=== PATIENT | male | born 1965 | race Two or more races ===

== ENCOUNTER 2019-05-30 15:28 | Emergency (ER) | payer MEDICAID, OTHER ==
[~2019-05-30] VITALS: Ht 167.6 cm; Wt 89.8 kg
[2019-05-30 18:23] VITALS: BP 143/78
[2019-05-30] MEDS ORDERED: TETANUS-DIPTH-ACEL PERTUSSIS 0.5ML SYRG IM ONE (18:45)
[2019-05-30] MEDS ORDERED: LIDOCAINE 1% HCL (LOCAL ANESTH.) INJ 20ML MDV IJ ONE (19:00)
[2019-05-30] MEDS ORDERED: BACITRACIN TOP OINT 1 UD PKG TOP ONE (19:45)
== END 2019-05-30 20:19 | disposition home or self-care (01) ==
LOC: ER 15:28
DX: S61.412A Laceration without foreign body of left hand, initial encounter (principal); W26.0XXA Contact with knife, initial encounter; Y93.89 Activity, other specified; Y92.89 Other specified places as the place of occurrence of the external cause; Y99.8 Other external cause status
CPT/HCPCS: 12002; 90471; 90715; 99283; J2001

== ENCOUNTER 2019-06-03 15:59 | Emergency (ER) | payer MEDICAID ==
[~2019-06-03] VITALS: Ht 167.6 cm; Wt 89.8 kg
[2019-06-03 16:50] VITALS: BP 142/88
== END 2019-06-03 17:39 | disposition home or self-care (01) ==
LOC: ER 15:59
DX: S61.412D Laceration without foreign body of left hand, subsequent encounter (principal); X58.XXXD Exposure to other specified factors, subsequent encounter

== ENCOUNTER 2019-06-09 11:15 | Emergency (ER) | payer MEDICAID ==
[~2019-06-09] VITALS: Ht 167.6 cm; Wt 89.8 kg
[2019-06-09 12:28] VITALS: BP 135/83
== END 2019-06-09 13:27 | disposition home or self-care (01) ==
LOC: ER 11:15
DX: S61.412D Laceration without foreign body of left hand, subsequent encounter (principal); X58.XXXD Exposure to other specified factors, subsequent encounter

== ENCOUNTER 2021-09-27 12:08 | Inpatient (IN) | payer MEDICAID ==
[~2021-09-27] VITALS: Ht 167.6 cm; Wt 83.1 kg
[2021-09-27 19:34] LABS: Basophils # (auto) 0.2 10 ^3/uL (0-0.2); Basophils % (auto) 1.1 % (0.0-2.0); Eosinophils # (auto) 0.8 10 ^3/uL (0-0.8); Eosinophils % (auto) 5.8 % (0.0-7.0); Hematocrit 41.3 % (41.0-53.0); Hemoglobin 13.9 g/dL (13.5-17.5); Lymphocytes # (auto) 3.4 10 ^3/uL (0.4-5.4); Lymphocytes % (auto) 24.8 % (10.0-50.0); Mean Corpuscular Hemoglobin 27.9 pg (28.0-32.0); Mean Corpuscular Hgb Conc. 33.6 g/dL (32.0-36.0); Mean Corpuscular Volume 83.1 fL (80.0-100.0); Monocytes # (auto) 0.8 10 ^3/uL (0-1.3); Neutrophils # (auto) 8.5 10 ^3/uL (1.6-8.6); Neutrophils % (auto) 62.3 % (37.0-80.0); Nucleated Red Blood Cells % 0.1 %; Red Blood Cells 4.98 10^6/uL (4.5-5.90); Red Cell Distribution Width 14.1 % (11.8-14.3); White Blood Cell 13.7 10^3/uL (4.4-10.8)
[2021-09-27 19:52] LABS: Albumin 3.4 g/dL (3.4-5.0)
[2021-09-27 19:56] LABS: Bilirubin, Total 0.1 mg/dL (0.2-1.0); Total Protein 9.1 g/dL (6.4-8.2)
[2021-09-28] MEDS ORDERED: CLINDAMYCIN 600MG IV 50 ML IV ONE (01:00)
[2021-09-28] MEDS ORDERED: VANCOMYCIN PER PHARMACY 0 MG IV SCH (04:15)
[2021-09-28] MEDS ORDERED: DEXTROSE (50%) 50ML SYRG IV PRN (04:15)
[2021-09-28] MEDS ORDERED: ACETAMINOPHEN 325 MG TAB PO PRN (04:15)
[2021-09-28] MEDS ORDERED: TEMAZEPAM 15 MG CAP PO PRN (04:15)
[2021-09-28] MEDS ORDERED: ONDANSETRON HCL 4 MG/2 ML VIAL IV PRN (04:15)
[2021-09-28] MEDS ORDERED: cloNIDine HCL 0.1 MG TAB PO PRN (04:15)
[2021-09-28] MEDS: cefTRIAXone 1GM/50ML D5W 50 ML IV SCH (04:24)
[2021-09-28] MEDS ORDERED: VANCOMYCIN 1GM/250ML 250 ML IV ONE (05:00)
[2021-09-28] MEDS: ACCU-CHEK COMFORT CURVE STRIP VI SCH ×4 (07:18→21:20)
[2021-09-28] MEDS: InsuLIN REG 1unit/0.01ml Soln (100units/ml) SC SCH ×4 (07:24→21:28)
[2021-09-28 08:00] VITALS: BP 135/88
[2021-09-28 09:05] VITALS: BP 135/88
[2021-09-28] MEDS: amLODIPine BESYLATE 5 MG TAB PO SCH (10:10)
[2021-09-28 12:27] VITALS: BP 130/80
[2021-09-28 16:44] VITALS: BP 131/84
[2021-09-28] MEDS ORDERED: METF-370 PO (18:49)
[2021-09-28] MEDS: ATORVASTATIN 20 MG TAB PO SCH (21:19)
[2021-09-28 21:49] VITALS: BP 140/86
[2021-09-28] MEDS: VANCOMYCIN 1GM/250ML 250 ML IV SCH (23:02)
[2021-09-29 04:29] VITALS: BP 113/71
[2021-09-29] MEDS: ACCU-CHEK COMFORT CURVE STRIP VI SCH ×4 (06:00→21:59)
[2021-09-29] MEDS: InsuLIN REG 1unit/0.01ml Soln (100units/ml) SC SCH ×4 (06:07→22:01)
[2021-09-29 06:28] LABS: Basophils # (auto) 0.1 10 ^3/uL (0-0.2); Eosinophils # (auto) 0.7 10 ^3/uL (0-0.8); Hematocrit 38.7 % (41.0-53.0); Hemoglobin 13.3 g/dL (13.5-17.5); Lymphocytes # (auto) 1.6 10 ^3/uL (0.4-5.4); Lymphocytes % (auto) 15.5 % (10.0-50.0); Mean Corpuscular Hemoglobin 28.2 pg (28.0-32.0); Mean Corpuscular Hgb Conc. 34.4 g/dL (32.0-36.0); Mean Corpuscular Volume 82.1 fL (80.0-100.0); Monocytes # (auto) 0.7 10 ^3/uL (0-1.3); Monocytes % (auto) 6.9 % (0.0-12.0); Neutrophils # (auto) 7.2 10 ^3/uL (1.6-8.6); Neutrophils % (auto) 69.6 % (37.0-80.0); Nucleated Red Blood Cells % 0.2 %; Red Blood Cells 4.72 10^6/uL (4.5-5.90); Red Cell Distribution Width 13.7 % (11.8-14.3); White Blood Cell 10.3 10^3/uL (4.4-10.8)
[2021-09-29 06:42] LABS: Potassium 4.2 mmol/L (3.5-5.1)
[2021-09-29 06:45] LABS: BUN/Creatinine Ratio 17.5
[2021-09-29 09:00] VITALS: BP 130/83
[2021-09-29] MEDS: cefTRIAXone 1GM/50ML D5W 50 ML IV SCH (09:31)
[2021-09-29] MEDS: amLODIPine BESYLATE 5 MG TAB PO SCH (09:31)
[2021-09-29 13:00] VITALS: BP 126/84
[2021-09-29 16:21] LABS: INR 1.05 (0.9-1.15)
[2021-09-29 17:00] VITALS: BP_SYST 116; BP_SYST 130; BP_DIAS 72; BP_DIAS 78
[2021-09-29] MEDS: VANCOMYCIN 1GM/250ML 250 ML IV SCH (17:09)
[2021-09-29 22:00] VITALS: BP 128/81
[2021-09-29] MEDS: ATORVASTATIN 20 MG TAB PO SCH (22:00)
[2021-09-30] MEDS: VANCOMYCIN 1GM/250ML 250 ML IV SCH ×2 (04:57→17:02)
[2021-09-30 05:00] VITALS: BP 126/77
[2021-09-30] MEDS: ACCU-CHEK COMFORT CURVE STRIP VI SCH ×4 (06:15→22:23)
[2021-09-30] MEDS: InsuLIN REG 1unit/0.01ml Soln (100units/ml) SC SCH ×4 (06:16→22:20)
[2021-09-30 09:00] VITALS: BP 119/79
[2021-09-30] MEDS: amLODIPine BESYLATE 5 MG TAB PO SCH (10:17)
[2021-09-30] MEDS: cefTRIAXone 1GM/50ML D5W 50 ML IV SCH (10:17)
[2021-09-30] MEDS: ASPirin 81 mg TAB PO SCH (10:17)
[2021-09-30 22:00] VITALS: BP 129/72
[2021-09-30] MEDS: ATORVASTATIN 20 MG TAB PO SCH (22:23)
[2021-10-01 05:28] VITALS: BP 139/83
[2021-10-01] MEDS: VANCOMYCIN 1GM/250ML 250 ML IV SCH (05:31)
[2021-10-01] MEDS: ACCU-CHEK COMFORT CURVE STRIP VI SCH ×4 (06:15→22:58)
[2021-10-01] MEDS: InsuLIN REG 1unit/0.01ml Soln (100units/ml) SC SCH ×4 (06:20→22:46)
[2021-10-01 06:30] LABS: Basophils # (auto) 0.1 10 ^3/uL (0-0.2); Basophils % (auto) 1.2 % (0.0-2.0); Eosinophils # (auto) 0.8 10 ^3/uL (0-0.8); Eosinophils % (auto) 6.5 % (0.0-7.0); Hematocrit 38.8 % (41.0-53.0); Hemoglobin 13.2 g/dL (13.5-17.5); Lymphocytes # (auto) 2.1 10 ^3/uL (0.4-5.4); Lymphocytes % (auto) 17.9 % (10.0-50.0); Mean Corpuscular Hemoglobin 28.1 pg (28.0-32.0); Mean Corpuscular Hgb Conc. 34.1 g/dL (32.0-36.0); Mean Corpuscular Volume 82.4 fL (80.0-100.0); Monocytes # (auto) 0.8 10 ^3/uL (0-1.3); Monocytes % (auto) 6.4 % (0.0-12.0); Neutrophils # (auto) 8.1 10 ^3/uL (1.6-8.6); Nucleated Red Blood Cells % 0.1 %; Red Blood Cells 4.71 10^6/uL (4.5-5.90); Red Cell Distribution Width 13.6 % (11.8-14.3); White Blood Cell 11.9 10^3/uL (4.4-10.8)
[2021-10-01 06:40] LABS: Calcium 8.6 mg/dL (8.5-10.1)
[2021-10-01 06:41] LABS: INR 1.04 (0.9-1.15)
[2021-10-01] MEDS ORDERED: HEPARIN IN NS 1000Units/500mL 0 ML ONE (09:11)
[2021-10-01] MEDS ORDERED: LIDOCAINE 2%HCL (LOCAL ANESTH.) INJ 10ml MDV ONE (09:11)
[2021-10-01] MEDS ORDERED: IODIXANOL 320MG/ML 100ML BTL IV ONE (09:11)
[2021-10-01 09:21] VITALS: BP 142/85
[2021-10-01] MEDS: amLODIPine BESYLATE 5 MG TAB PO SCH (10:00)
[2021-10-01] MEDS: ASPirin 81 mg TAB PO SCH (10:00)
[2021-10-01] MEDS ORDERED: ANGIOMAX 250 MG VIAL IV ONE (12:09)
[2021-10-01] MEDS ORDERED: MIDAZOLAM HCL 2MG/2ML 2ml VIAL (1mg/ml) ONE (12:10)
[2021-10-01] MEDS ORDERED: LIDOCAINE 2%HCL (LOCAL ANESTH.) INJ 20ML MDV ONE (12:10)
[2021-10-01] MEDS ORDERED: SODIUM CHL 0.9% 0 ML ONE (12:10)
[2021-10-01] MEDS ORDERED: fentaNYL CITRATE 100 MCG/2 ML VL ONE (12:10)
[2021-10-01] MEDS ORDERED: LIDOCAINE 1% (LOCAL ANESTH.) PF 5ml SDV ID ONE (13:45)
[2021-10-01] MEDS: cefTRIAXone 1GM/50ML D5W 50 ML IV SCH (14:14)
[2021-10-01 17:00] VITALS: BP 145/85
[2021-10-01 22:00] VITALS: BP 128/69
[2021-10-01] MEDS: ATORVASTATIN 20 MG TAB PO SCH (22:54)
[2021-10-01] MEDS: SODIUM CHLOR 0.9% PF (SALINE LOCK) 10ML VIAL/SYR IV SCH (22:58)
[2021-10-02] VITALS (9 sets, daily range): BP systolic 112–144; BP diastolic 68–78
[2021-10-02] MEDS: InsuLIN REG 1unit/0.01ml Soln (100units/ml) SC SCH ×4 (06:14→22:00)
[2021-10-02] MEDS: ACCU-CHEK COMFORT CURVE STRIP VI SCH ×4 (06:15→23:01)
[2021-10-02] MEDS: cefTRIAXone 1GM/50ML D5W 50 ML IV SCH (09:00)
[2021-10-02] MEDS ORDERED: VANCOMYCIN 1GM/250ML 250 ML IV SCH (10:00)
[2021-10-02] MEDS: amLODIPine BESYLATE 5 MG TAB PO SCH (10:00)
[2021-10-02] MEDS: SODIUM CHLOR 0.9% PF (SALINE LOCK) 10ML VIAL/SYR IV SCH ×2 (10:00→23:01)
[2021-10-02] MEDS: ASPirin 81 mg TAB PO SCH (10:00)
[2021-10-02] MEDS ORDERED: IODIXANOL 320MG/ML 100ML BTL IV ONE ×2 (10:46→11:01)
[2021-10-02] MEDS ORDERED: LIDOCAINE 2%HCL (LOCAL ANESTH.) INJ 20ML MDV ONE (10:46)
[2021-10-02] MEDS ORDERED: fentaNYL CITRATE 100 MCG/2 ML VL ONE (10:55)
[2021-10-02] MEDS ORDERED: ANGIOMAX 250 MG VIAL IV ONE (10:55)
[2021-10-02] MEDS ORDERED: SODIUM CHL 0.9% 0 ML ONE (10:56)
[2021-10-02] MEDS ORDERED: MIDAZOLAM HCL 2MG/2ML 2ml VIAL (1mg/ml) ONE (10:56)
[2021-10-02] MEDS: VANCOMYCIN 1GM/250ML 250 ML IV SCH (13:21)
[2021-10-02] MEDS: ATORVASTATIN 20 MG TAB PO SCH (23:01)
[2021-10-03] MEDS: VANCOMYCIN 1GM/250ML 250 ML IV SCH ×2 (04:23→20:40)
[2021-10-03 05:00] VITALS: BP 109/61
[2021-10-03] MEDS: InsuLIN REG 1unit/0.01ml Soln (100units/ml) SC SCH ×4 (06:04→21:26)
[2021-10-03] MEDS: ACCU-CHEK COMFORT CURVE STRIP VI SCH ×4 (06:04→21:25)
[2021-10-03] MEDS ORDERED: ceFAZolin 1GM/50ML 100 ML IV ONE (08:07)
[2021-10-03] MEDS ORDERED: BUPIVACAINE HCL 50 ML ONE (08:19)
[2021-10-03] MEDS ORDERED: MEPERIDINE HCL (25 MG/ML) 1ML VIAL ONE (08:35)
[2021-10-03] MEDS ORDERED: fentaNYL CITRATE 100 MCG/2 ML VL ONE (08:35)
[2021-10-03] MEDS ORDERED: MIDAZOLAM HCL 2MG/2ML 2ml VIAL (1mg/ml) ONE (08:35)
[2021-10-03] MEDS ORDERED: ceFAZolin 1GM VL ONE (08:59)
[2021-10-03] MEDS ORDERED: DexAMETHasone SOD PHOS 10MG/1ML VIAL INJ ONE (09:08)
[2021-10-03] MEDS ORDERED: PROPOFOL 10 MG/ML 20 ML IV ONE (09:08)
[2021-10-03] MEDS ORDERED: ePHEDrine SULFATE 50 MG/ML AMP IV PRN (09:30)
[2021-10-03] MEDS ORDERED: HYDROmorphone HCL 2 MG/ML VL/or syr IV PRN (09:30)
[2021-10-03] MEDS ORDERED: MIDAZOLAM HCL 2MG/2ML 2ml VIAL (1mg/ml) IV PRN (09:30)
[2021-10-03] MEDS ORDERED: LABETALOL HCL 5 MG/ML 4ML SYRINGE IV PRN (09:30)
[2021-10-03] MEDS ORDERED: ONDANSETRON HCL 4 MG/2 ML VIAL IV PRN (09:30)
[2021-10-03] MEDS ORDERED: MORPHINE SULFATE 4 MG/ML SYR/VIAL IV PRN (09:30)
[2021-10-03] MEDS: ASPirin 81 mg TAB PO SCH (10:00)
[2021-10-03] MEDS: SODIUM CHLOR 0.9% PF (SALINE LOCK) 10ML VIAL/SYR IV SCH ×2 (10:00→21:08)
[2021-10-03] MEDS: cefTRIAXone 1GM/50ML D5W 50 ML IV SCH (11:23)
[2021-10-03] MEDS: amLODIPine BESYLATE 5 MG TAB PO SCH (11:24)
[2021-10-03 13:00] VITALS: BP 136/79
[2021-10-03 17:00] VITALS: BP 126/77
[2021-10-03] MEDS: HYDROcodone-ACET 5/325MG TAB PO PRN (17:49)
[2021-10-03] MEDS: ATORVASTATIN 20 MG TAB PO SCH (21:08)
[2021-10-03 22:00] VITALS: BP 143/77
[2021-10-04 04:57] VITALS: BP 113/74
[2021-10-04] MEDS: HYDROcodone-ACET 5/325MG TAB PO PRN ×3 (06:03→21:50)
[2021-10-04] MEDS: ACCU-CHEK COMFORT CURVE STRIP VI SCH ×4 (06:04→22:02)
[2021-10-04] MEDS: InsuLIN REG 1unit/0.01ml Soln (100units/ml) SC SCH ×4 (06:05→21:54)
[2021-10-04 09:00] VITALS: BP 161/88
[2021-10-04] MEDS: cefTRIAXone 1GM/50ML D5W 50 ML IV SCH (09:14)
[2021-10-04] MEDS: amLODIPine BESYLATE 5 MG TAB PO SCH (09:15)
[2021-10-04] MEDS: SODIUM CHLOR 0.9% PF (SALINE LOCK) 10ML VIAL/SYR IV SCH ×2 (10:00→22:02)
[2021-10-04] MEDS: ASPirin 81 mg TAB PO SCH (10:00)
[2021-10-04] MEDS: VANCOMYCIN 1GM/250ML 250 ML IV SCH (12:17)
[2021-10-04 13:00] VITALS: BP 130/84
[2021-10-04 17:00] VITALS: BP 130/79
[2021-10-04] MEDS: ATORVASTATIN 20 MG TAB PO SCH (21:49)
[2021-10-04 22:00] VITALS: BP 133/74
[2021-10-05] MEDS: VANCOMYCIN 1GM/250ML 250 ML IV SCH ×2 (03:39→20:00)
[2021-10-05 05:00] VITALS: BP 124/85
[2021-10-05] MEDS: ACCU-CHEK COMFORT CURVE STRIP VI SCH ×4 (06:53→21:32)
[2021-10-05] MEDS: InsuLIN REG 1unit/0.01ml Soln (100units/ml) SC SCH ×4 (06:59→21:37)
[2021-10-05 08:55] VITALS: BP 110/58
[2021-10-05] MEDS: ASPirin 81 mg TAB PO SCH (09:17)
[2021-10-05] MEDS: HYDROcodone-ACET 5/325MG TAB PO PRN ×3 (09:17→21:32)
[2021-10-05] MEDS: amLODIPine BESYLATE 5 MG TAB PO SCH (09:18)
[2021-10-05] MEDS: cefTRIAXone 1GM/50ML D5W 50 ML IV SCH (09:19)
[2021-10-05] MEDS: SODIUM CHLOR 0.9% PF (SALINE LOCK) 10ML VIAL/SYR IV SCH ×2 (12:31→21:31)
[2021-10-05 12:49] VITALS: BP 103/65
[2021-10-05 16:55] VITALS: BP 126/72
[2021-10-05] MEDS: ATORVASTATIN 20 MG TAB PO SCH (21:31)
[2021-10-05 22:00] VITALS: BP 103/66
[2021-10-06 05:00] VITALS: BP 106/62
[2021-10-06] MEDS: ACCU-CHEK COMFORT CURVE STRIP VI SCH ×4 (06:06→21:12)
[2021-10-06] MEDS: InsuLIN REG 1unit/0.01ml Soln (100units/ml) SC SCH ×4 (06:07→21:22)
[2021-10-06] MEDS: cefTRIAXone 1GM/50ML D5W 50 ML IV SCH (08:56)
[2021-10-06 09:00] VITALS: BP 115/65
[2021-10-06] MEDS: amLODIPine BESYLATE 5 MG TAB PO SCH (10:00)
[2021-10-06] MEDS: SODIUM CHLOR 0.9% PF (SALINE LOCK) 10ML VIAL/SYR IV SCH ×2 (11:41→21:25)
[2021-10-06] MEDS: ASPirin 81 mg TAB PO SCH (12:04)
[2021-10-06] MEDS: HYDROcodone-ACET 5/325MG TAB PO PRN ×2 (12:04→21:27)
[2021-10-06] MEDS: VANCOMYCIN 1GM/250ML 250 ML IV SCH (12:06)
[2021-10-06 13:00] VITALS: BP 114/76
[2021-10-06 16:30] VITALS: BP 119/66
[2021-10-06] MEDS: ATORVASTATIN 20 MG TAB PO SCH (21:11)
[2021-10-06 22:00] VITALS: BP 124/75
[2021-10-07] MEDS: VANCOMYCIN 1GM/250ML 250 ML IV SCH (04:07)
[2021-10-07 05:00] VITALS: BP 114/68
[2021-10-07] MEDS: ACCU-CHEK COMFORT CURVE STRIP VI SCH ×2 (06:19→11:46)
[2021-10-07] MEDS: InsuLIN REG 1unit/0.01ml Soln (100units/ml) SC SCH ×2 (06:22→11:30)
[2021-10-07 08:30] VITALS: BP 116/72
[2021-10-07] MEDS: cefTRIAXone 1GM/50ML D5W 50 ML IV SCH (08:46)
[2021-10-07] MEDS: ASPirin 81 mg TAB PO SCH (09:48)
[2021-10-07] MEDS: SODIUM CHLOR 0.9% PF (SALINE LOCK) 10ML VIAL/SYR IV SCH (09:48)
[2021-10-07] MEDS: amLODIPine BESYLATE 5 MG TAB PO SCH (09:49)
[2021-10-07] MEDS: HYDROcodone-ACET 5/325MG TAB PO PRN (09:56)
[2021-10-07 13:00] VITALS: BP 118/72
[2021-10-07 14:15] VITALS: BP 112/63
[2021-10-07 14:22] VITALS: BP 112/63
== END 2021-10-07 14:30 | disposition home health service (06) | DRG 314 ==
LOC: ER 12:08 → OVERFLOW 09-28 04:09 → WEST WING 09-28 07:57
PROVIDERS: ADMIT Nurse Practitioner; ATTEND Family Medicine
PROC: 02HV33Z Insertion of Infusion Device into Superior Vena Cava, Percutaneous Approach (ICD-10-PCS; 2021-10-01)
PROC: 0Y6P0Z0 Detachment at Right 1st Toe, Complete, Open Approach (ICD-10-PCS; principal; 2021-10-02)
PROC: B41GYZZ Fluoroscopy of Left Lower Extremity Arteries using Other Contrast (ICD-10-PCS; 2021-10-02)
PROC: B41FYZZ Fluoroscopy of Right Lower Extremity Arteries using Other Contrast (ICD-10-PCS; 2021-10-02)
DX: E11.621 Type 2 diabetes mellitus with foot ulcer (principal); N17.9 Acute kidney failure, unspecified; E11.22 Type 2 diabetes mellitus with diabetic chronic kidney disease; M86.8X7 Other osteomyelitis, ankle and foot; E11.40 Type 2 diabetes mellitus with diabetic neuropathy, unspecified; L97.509 Non-pressure chronic ulcer of other part of unspecified foot with unspecified severity; B96.20 Unspecified Escherichia coli [E. coli] as the cause of diseases classified elsewhere; E11.51 Type 2 diabetes mellitus with diabetic peripheral angiopathy without gangrene; L97.519 Non-pressure chronic ulcer of other part of right foot with unspecified severity; E11.622 Type 2 diabetes mellitus with other skin ulcer; E78.5 Hyperlipidemia, unspecified; N18.9 Chronic kidney disease, unspecified; I12.9 Hypertensive chronic kidney disease with stage 1 through stage 4 chronic kidney disease, or unspecified chronic kidney disease; E11.69 Type 2 diabetes mellitus with other specified complication; Z20.822 Contact with and (suspected) exposure to COVID-19; Z79.84 Long term (current) use of oral hypoglycemic drugs
CPT/HCPCS: 36415; 36569; 71045; 73620; 73700; 73718; 75716; 80048; 80053; 80202; 82565; 82962; 83036; 83605; 85025; 85610; 86850; 86900; 86901; 87040; 87070; 87075; 87077; 87186; 87205; 93005; 93925; 96365; 96366; 96367; 99152; G0378; J0690; J0696; J1100; J1815; J2001; J2250; J2405; J2704; J3490; Q9967

== ENCOUNTER 2021-12-31 07:17 | Inpatient (IN) | payer MEDICAID ==
[~2021-12-31] VITALS: Ht 167.6 cm; Wt 84.3 kg
[~2021-12-31 07:17] MED LIST: METF-370 PO
[2021-12-31] MEDS ORDERED: SODIUM CHLORIDE 0.9% 1,000 ML IV ONE (08:00)
[2021-12-31] MEDS ORDERED: PIPERACILLIN-TAZOB 3.375GM 100 ML IV ONE (08:00)
[2021-12-31 08:33] LABS: INR 0.97 (0.9-1.15); Partial Thromboplastin Time 26.8 sec (24.6-33.4)
[2021-12-31 08:42] LABS: Basophils # (auto) 0.2 10 ^3/uL (0-0.2); Basophils % (auto) 1.2 % (0.0-2.0); Eosinophils # (auto) 0.6 10 ^3/uL (0-0.8); Hematocrit 38.4 % (41.0-53.0); Hemoglobin 12.8 g/dL (13.5-17.5); Lymphocytes # (auto) 2.8 10 ^3/uL (0.4-5.4); Lymphocytes % (auto) 22.3 % (10.0-50.0); Mean Corpuscular Hgb Conc. 33.4 g/dL (32.0-36.0); Mean Corpuscular Volume 80.9 fL (80.0-100.0); Monocytes # (auto) 0.8 10 ^3/uL (0-1.3); Monocytes % (auto) 6.3 % (0.0-12.0); Neutrophils # (auto) 8.3 10 ^3/uL (1.6-8.6); Neutrophils % (auto) 65.2 % (37.0-80.0); Nucleated Red Blood Cells % 0.1 %; Red Blood Cells 4.74 10^6/uL (4.5-5.90); Red Cell Distribution Width 13.9 % (11.8-14.3); White Blood Cell 12.8 10^3/uL (4.4-10.8)
[2021-12-31 08:47] LABS: Albumin 3.1 g/dL (3.4-5.0); Calcium 9.1 mg/dL (8.5-10.1)
[2021-12-31 08:51] LABS: BUN/Creatinine Ratio 19.3; Bilirubin, Total 0.3 mg/dL (0.2-1.0)
[2021-12-31] MEDS ORDERED: DEXTROSE (50%) 50ML SYRG IV PRN (11:15)
[2021-12-31] MEDS ORDERED: VANCOMYCIN PER PHARMACY 0 MG IV SCH (11:15)
[2021-12-31] MEDS: SODIUM CHLORIDE 0.9% 1,000 ML IV SCH ×2 (11:37→21:39)
[2021-12-31] MEDS: cefTRIAXone 1GM/50ML D5W 50 ML IV SCH (11:37)
[2021-12-31 11:59] LABS: Urine WBC None Seen /hpf (0 - 3)
[2021-12-31] MEDS: VANCOMYCIN 1GM/250ML 250 ML IV SCH (12:08)
[2021-12-31] MEDS: ACCU-CHEK COMFORT CURVE STRIP VI SCH ×2 (12:09→18:06)
[2021-12-31] MEDS: InsuLIN REG 1unit/0.01ml Soln (100units/ml) SC SCH ×2 (12:09→18:00)
[2021-12-31 12:27] LABS: Urine Bacteria NONE SEEN /hpf (None Seen); Urine Blood Negative /uL (Negative); Urine Specific Gravity 1.017 (1.001-1.035)
[2022-01-01] MEDS ORDERED: INSLANTI SC (00:13)
[2022-01-01] MEDS: ACCU-CHEK COMFORT CURVE STRIP VI SCH ×4 (00:23→18:25)
[2022-01-01 04:08] LABS: Basophils # (auto) 0.1 10 ^3/uL (0-0.2); Basophils % (auto) 1.1 % (0.0-2.0); Eosinophils # (auto) 0.5 10 ^3/uL (0-0.8); Eosinophils % (auto) 5.4 % (0.0-7.0); Lymphocytes # (auto) 1.8 10 ^3/uL (0.4-5.4); Lymphocytes % (auto) 18.6 % (10.0-50.0); Mean Corpuscular Hemoglobin 26.8 pg (28.0-32.0); Mean Corpuscular Hgb Conc. 33.3 g/dL (32.0-36.0); Mean Corpuscular Volume 80.5 fL (80.0-100.0); Monocytes # (auto) 0.7 10 ^3/uL (0-1.3); Monocytes % (auto) 7.4 % (0.0-12.0); Neutrophils # (auto) 6.7 10 ^3/uL (1.6-8.6); Neutrophils % (auto) 67.5 % (37.0-80.0); Red Blood Cells 4.47 10^6/uL (4.5-5.90); Red Cell Distribution Width 13.9 % (11.8-14.3); White Blood Cell 9.9 10^3/uL (4.4-10.8)
[2022-01-01 04:23] LABS: Albumin 2.9 g/dL (3.4-5.0); Calcium 8.5 mg/dL (8.5-10.1); Potassium 4.3 mmol/L (3.5-5.1)
[2022-01-01 04:27] LABS: BUN/Creatinine Ratio 17.9; Bilirubin, Total 0.2 mg/dL (0.2-1.0); Total Protein 7.6 g/dL (6.4-8.2)
[2022-01-01 05:00] VITALS: BP 134/75
[2022-01-01] MEDS: InsuLIN REG 1unit/0.01ml Soln (100units/ml) SC SCH ×4 (06:00→18:00)
[2022-01-01] MEDS: VANCOMYCIN 1GM/250ML 250 ML IV SCH ×2 (06:10→18:25)
[2022-01-01 08:00] VITALS: BP 137/80
[2022-01-01 09:00] VITALS: BP 137/80
[2022-01-01] MEDS: cefTRIAXone 1GM/50ML D5W 50 ML IV SCH (09:04)
[2022-01-01 13:00] VITALS: BP 122/74
[2022-01-01 17:00] VITALS: BP 127/71
[2022-01-01] MEDS: SODIUM CHLORIDE 0.9% 1,000 ML IV SCH ×2 (18:53→18:54)
[2022-01-01 22:00] VITALS: BP 129/73
[2022-01-02] MEDS: ACCU-CHEK COMFORT CURVE STRIP VI SCH ×4 (00:50→16:33)
[2022-01-02 05:00] VITALS: BP 133/77
[2022-01-02] MEDS: SODIUM CHLORIDE 0.9% 1,000 ML IV SCH ×3 (05:14→23:34)
[2022-01-02] MEDS: InsuLIN REG 1unit/0.01ml Soln (100units/ml) SC SCH ×4 (06:00→16:33)
[2022-01-02] MEDS: VANCOMYCIN 1GM/250ML 250 ML IV SCH (06:14)
[2022-01-02 09:00] VITALS: BP 136/89
[2022-01-02] MEDS: cefTRIAXone 1GM/50ML D5W 50 ML IV SCH (09:13)
[2022-01-02] MEDS ORDERED: ceFAZolin 1GM/50ML 100 ML IV ONE (12:35)
[2022-01-02] MEDS ORDERED: ROPIVACAINE 0.5% (5MG/ML) 20ML AMPULE IJ ONE (14:07)
[2022-01-02] MEDS ORDERED: ceFAZolin 1GM VL ONE (14:07)
[2022-01-02] MEDS ORDERED: fentaNYL CITRATE 5 ML ONE (14:25)
[2022-01-02] MEDS ORDERED: MIDAZOLAM HCL 2MG/2ML 2ml VIAL (1mg/ml) ONE (14:25)
[2022-01-02] MEDS ORDERED: HYDROmorphone HCL 2 MG/ML VL/or syr IV PRN (15:15)
[2022-01-02] MEDS ORDERED: ONDANSETRON HCL 4 MG/2 ML VIAL IV PRN (15:15)
[2022-01-02] MEDS ORDERED: PROPOFOL 10 MG/ML 20 ML IV ONE (15:20)
[2022-01-02] MEDS ORDERED: ePHEDrine SULFATE 50 MG/ML AMP ONE (15:21)
[2022-01-02] MEDS: DAPTOmycin 350 MG in SODIUM CHL 0.9% 50 ML IV SCH (16:09)
[2022-01-02 16:57] VITALS: BP 133/76
[2022-01-02] MEDS ORDERED: LIDOCAINE 1% (LOCAL ANESTH.) PF 5ml SDV ID ONE (17:30)
[2022-01-02] MEDS: MORPHINE SULFATE INJ 2 MG/ml SYRG IV PRN (21:40)
[2022-01-02 22:00] VITALS: BP 137/76
[2022-01-02] MEDS: SODIUM CHLOR 0.9% PF (SALINE LOCK) 10ML VIAL/SYR IV SCH (22:00)
[2022-01-03] MEDS: ACCU-CHEK COMFORT CURVE STRIP VI SCH ×4 (00:51→18:00)
[2022-01-03] MEDS: InsuLIN REG 1unit/0.01ml Soln (100units/ml) SC SCH ×4 (00:52→18:00)
[2022-01-03] MEDS: MORPHINE SULFATE INJ 2 MG/ml SYRG IV PRN (01:55)
[2022-01-03 05:00] VITALS: BP 123/78
[2022-01-03 06:19] LABS: Basophils # (auto) 0.1 10 ^3/uL (0-0.2); Basophils % (auto) 0.9 % (0.0-2.0); Eosinophils # (auto) 0.5 10 ^3/uL (0-0.8); Neutrophils # (auto) 8.3 10 ^3/uL (1.6-8.6)
[2022-01-03 06:22] LABS: Eosinophils % (auto) 4.3 % (0.0-7.0); Hematocrit 36.6 % (41.0-53.0); Hemoglobin 12.3 g/dL (13.5-17.5); Lymphocytes # (auto) 1.8 10 ^3/uL (0.4-5.4); Lymphocytes % (auto) 15.2 % (10.0-50.0); Mean Corpuscular Hgb Conc. 33.7 g/dL (32.0-36.0); Mean Corpuscular Volume 80.3 fL (80.0-100.0); Monocytes % (auto) 8.3 % (0.0-12.0); Neutrophils % (auto) 71.3 % (37.0-80.0); Red Blood Cells 4.56 10^6/uL (4.5-5.90); Red Cell Distribution Width 13.5 % (11.8-14.3); White Blood Cell 11.7 10^3/uL (4.4-10.8)
[2022-01-03 06:36] LABS: Potassium 3.9 mmol/L (3.5-5.1)
[2022-01-03 06:41] LABS: Calcium 8.5 mg/dL (8.5-10.1)
[2022-01-03 09:10] VITALS: BP 135/77
[2022-01-03] MEDS ORDERED: HYDROcodone-ACET 10/325MG TAB PO PRN (09:15)
[2022-01-03] MEDS: SODIUM CHLOR 0.9% PF (SALINE LOCK) 10ML VIAL/SYR IV SCH (10:07)
[2022-01-03] MEDS: SODIUM CHLORIDE 0.9% 1,000 ML IV SCH (10:07)
[2022-01-03] MEDS ORDERED: HYDR-4798 PO (11:33)
[2022-01-03] MEDS: DAPTOmycin 350 MG in SODIUM CHL 0.9% 50 ML IV SCH (12:29)
[2022-01-03 13:00] VITALS: BP 154/76
[2022-01-03 14:12] VITALS: BP 150/76
[2022-01-03] MEDS ORDERED: DAPTOmycin 350 MG in SODIUM CHL 0.9% 50 ML IV ONE (15:00)
[2022-01-03 17:00] VITALS: BP 163/77
[2022-01-04] MEDS ORDERED: DAPTOmycin 500 MG in SODIUM CHL 0.9% 50 ML IV SCH (16:00)
== END 2022-01-03 17:50 | disposition home health service (06) | DRG 314 ==
LOC: ER 07:17 → OVERFLOW 11:06 → CENTRAL 22:20
PROVIDERS: ADMIT Registered Nurse; ATTEND Hospitalist
PROC: 0QBN0Z2 Excision of Right Metatarsal, Sesamoid Bone(s) 1st Toe, Open Approach (ICD-10-PCS; 2022-01-02)
PROC: 05HY33Z Insertion of Infusion Device into Upper Vein, Percutaneous Approach (ICD-10-PCS; 2022-01-02)
PROC: B54NZZA Ultrasonography of Left Upper Extremity Veins, Guidance (ICD-10-PCS; 2022-01-02)
PROC: 0QBN0ZZ Excision of Right Metatarsal, Open Approach (ICD-10-PCS; principal; 2022-01-02 14:28)
DX: E11.621 Type 2 diabetes mellitus with foot ulcer (principal); M86.8X7 Other osteomyelitis, ankle and foot; E11.22 Type 2 diabetes mellitus with diabetic chronic kidney disease; L03.115 Cellulitis of right lower limb; L97.509 Non-pressure chronic ulcer of other part of unspecified foot with unspecified severity; B95.62 Methicillin resistant Staphylococcus aureus infection as the cause of diseases classified elsewhere; E11.622 Type 2 diabetes mellitus with other skin ulcer; E11.69 Type 2 diabetes mellitus with other specified complication; I12.9 Hypertensive chronic kidney disease with stage 1 through stage 4 chronic kidney disease, or unspecified chronic kidney disease; N18.31 Chronic kidney disease, stage 3a; Z20.822 Contact with and (suspected) exposure to COVID-19; Z89.512 Acquired absence of left leg below knee; Z89.411 Acquired absence of right great toe; Z79.84 Long term (current) use of oral hypoglycemic drugs
CPT/HCPCS: 36415; 36569; 71045; 73700; 73718; 80048; 80053; 80202; 81001; 82550; 82962; 83036; 83605; 84484; 85025; 85610; 85730; 86850; 86900; 86901; 87040; 87070; 87076; 87077; 87186; 87205; 96361; 96365; 96366; 96367; 96368; G0378; J0690; J0696; J1815; J2250; J2543; J2704